=== PATIENT | female | born 1935 | race Caucasian/White ===

== ENCOUNTER 2017-09-06 12:40 | Emergency (ER) | payer OTHER ==
[~2017-09-06] VITALS: Ht 157.5 cm; Wt 55.6 kg
[~2017-09-06 12:40] MED LIST: AMIODARONE HCL200 MG PO; AMLODIPINE BESYL5 MG PO; ASPIRIN81 M2 PO; CITALOPRAM HBR10 MG PO; Cordarone, Pacerone PO; ECOTRIN325 MG PO; GLIMEPIRIDE1 MG PO; GLUCOTROL5 MG PO; IRON325 MG PO; LISINOPRIL10 MG PO; LORAZEPAM0.5 MG PO; METOPROLOL SUCC50 MG PO; OMEPRAZOLE40 M1 PO; PANTOPRAZOLE SO40 MG PO; PLAVIX75 MG PO; PRAVACHOL80 MG PO; PRAVASTATIN SOD80 MG PO; PREDNISONE10 MG PO; PRESERVISIO1 CAPSULE PO; PRILOSEC40 MG PO; SPIRIVA1 INHALATI IH; TOPROL XL6.25 MG PO; Toprol XL PO; VITAMIN D31000 UNIT PO; XARELTO15 MG PO; Xarelto PO; ZESTRIL20 MG PO
[2017-09-06 13:09] LABS: HEMATOCRIT 29.8 % (36.0-46.0); HEMOGLOBIN 9.1 G/DL (11.9-15.5); MCH 28.3 PG (29.0-34.0); MCHC 30.5 G/DL (30.0-36.0); MCV 92.8 FL (83-99); PLATELET COUNT 419 K/uL (156-360); RBC DIS.WIDTH-CV 14.6 % (11.8-14.6); RED BLOOD COUNT 3.21 M/uL (3.80-5.20); WHITE BLOOD COUNT 12.9 K/uL (4.1-10.2)
[2017-09-06 13:10] LABS: CARBON DIOXIDE (BICARBONATE) 33.1 MEQ/L (20-31)
[2017-09-06 13:16] LABS: ALBUMIN 3.6 g/dL (3.2-4.8); CHLORIDE 99 mEq/L (99-109); POTASSIUM 4.2 mEq/L (3.7-5.4); SODIUM 136 mEq/L (136-147)
[2017-09-06 13:18] LABS: GLUCOSE 336 mg/dL (70-99)
[2017-09-06 13:19] LABS: TOTAL PROTEIN 6.5 g/dL (6.4-8.3)
[2017-09-06 13:20] LABS: TOTAL BILIRUBIN 0.3 mg/dL (0.0-1.0)
[2017-09-06 13:23] LABS: ALKALINE PHOSPHATASE 136 IU/L (3-129); CREATININE 0.8 mg/dL (0.6-1.3); GFR ESTIMATE (CALCULATED) > 59 mL/min/; UREA NITROGEN (BUN) 14 mg/dL (9-23)
[2017-09-06 13:24] LABS: AST (GOT) 11 IU/L (2-34)
[2017-09-06 13:25] LABS: ALT (GPT) 10 IU/L (3-49)
[2017-09-06 13:42] LABS: TROP-I INTERPRETATION NEGATIVE; TROPONIN-I < 0.01 ng/mL (0.0-0.30)
[2017-09-06 14:54] LABS: APPEARANCE SL.HAZY ((CLEAR)); BILIRUBIN NEGATIVE; BLOOD LARGE; COLOR YELLOW ((YELLOW)); GLUCOSE (STRIP) 150; KETONES NEGATIVE; LEUKOCYTES SMALL; NITRITE NEGATIVE; PROTEIN (STRIP) NEGATIVE; SPECIFIC GRAVITY 1.013 (1.000-1.030); UROBILINOGEN 0.2 MG/DL (0.2-1.0)
[2017-09-06 15:00] LABS: BACTERIA RARE /HPF; EPITHELIAL CELLS RARE /HPF; MUCUS TRACE /LPF; RED BLOOD CELLS TNTC /HPF (0-5); UCUL ADDED? YES; WHITE BLOOD CELLS 20-30 /HPF (0-5)
[2017-09-06 17:11] VITALS: BP 183/76
== END 2017-09-06 17:13 | disposition home or self-care (01) ==
LOC: EME 12:40
PROVIDERS: Emergency Medicine
DX: R31.9 Hematuria, unspecified (principal); N20.2 Calculus of kidney with calculus of ureter; K57.30 Diverticulosis of large intestine without perforation or abscess without bleeding; D64.9 Anemia, unspecified; E11.65 Type 2 diabetes mellitus with hyperglycemia; R30.0 Dysuria; I25.2 Old myocardial infarction; I10 Essential (primary) hypertension; E78.5 Hyperlipidemia, unspecified; J44.9 Chronic obstructive pulmonary disease, unspecified; Z87.442 Personal history of urinary calculi; Z90.710 Acquired absence of both cervix and uterus; Z86.73 Personal history of transient ischemic attack (TIA), and cerebral infarction without residual deficits; Z85.118 Personal history of other malignant neoplasm of bronchus and lung; Z90.2 Acquired absence of lung [part of]; Z79.01 Long term (current) use of anticoagulants; Z79.84 Long term (current) use of oral hypoglycemic drugs; Z87.891 Personal history of nicotine dependence
CPT/HCPCS: 71046; 74176; 80053; 81003; 82010; 82803; 82948; 84484; 85027; 87086 GA; 93005; 99281; 99285; J7040